=== PATIENT | female | born 1965 | race African-American/Black ===

== ENCOUNTER 2022-05-16 12:55 | Emergency (ER) | payer MEDICAID ==
[~2022-05-16] VITALS: Ht 162.6 cm; Wt 87.0 kg
[2022-05-16 14:02] VITALS: BP 138/93
[2022-05-16] MEDS ORDERED: BACITRACIN ZINC OINT UDPKT TOP ONE (17:45)
[2022-05-16] MEDS ORDERED: BO1 TP (18:10)
== END 2022-05-16 18:48 | disposition home or self-care (01) ==
LOC: ER 12:55
DX: Z48.00 Encounter for change or removal of nonsurgical wound dressing (principal); E11.9 Type 2 diabetes mellitus without complications
CPT/HCPCS: 99282